=== PATIENT | female | born 2000 | race Two or more races ===

== ENCOUNTER 2025-03-06 05:53 | Emergency (ER) | payer MEDICAID, OTHER ==
[~2025-03-06] VITALS: Ht 152.4 cm; Wt 68.4 kg
[2025-03-06 06:32] VITALS: BP 118/71; PULSE 73; TEMP 98.5
--- NOTE | 2025-03-06 06:45 | ED.PDOC ---
GI ASSESSMENT HPI Comments 24 y/o F, presents to the ED for CC of abdominal pain. Patient states, she has been experiencing epigastric abdominal pain that radiates to her back sudden onset, 0400 this morning (03/06/25). Patient relays, that she is currently [id number] ; believes symptoms to be non-related. Patient denies nausea, vomiting, diarrhea, abdominal cramping, or vaginal bleeding. No other associated symptoms, modifiers, recent injuries or sick contacts present at this time. Chief Complaint: Abdominal Pain Time Seen by MD: 06:40 Reviewed Notes: Nurses Notes, Medications, Allergies Home Meds Active Scripts Pantoprazole Sodium Sesquihydr (Protonix) 40 Mg Tab, 40 MG PO DAILY, #30 TAB Prov:JERRY NEWELL MD 03/06/25 Information Source: Patient Mode of Arrival: Ambulatory Timing: Hours Duration: Since onset Prehospital treatment: None Vomitus: None Stool: Normal Severity: Moderate Recent: None Recent Hx of: None Pain Location: Epigastric Modifying Factors: Nothing Associated sign and symptoms: Abdominal Pain Past Medical History PAST MEDICAL HISTORY: Denies Surgical History: Denies all surgeries ORTHOPEDIC CODER History: Denies all ORTHOPEDIC CODER Hx Family History Family History: Unknown Social History Smoker: Non-Smoker Alcohol: Denies ETOH Use Drugs: Denies Drug Use Lives In: Home Constitutional: denies: chills, diaphoresis, fatigue, fever, malaise, sweats, weakness, others EENTM: denies: blurred vision, double vision, ear bleeding, ear discharge, ear drainage, ear pain, ear ringing, eye pain, eye redness, hearing loss, mouth pain, mouth swelling, nasal discharge, nose bleeding, nose congestion, nose pain, photophobia, tearing, throat pain, throat swelling, voice changes, others Respiratory: denies: cough, hemoptysis, orthopnea, SOB at rest, shortness of breath, SOB with excertion, stridor, wheezing, others Cardiovascular: denies: chest pain, dizzy spells, diaphoresis, Dyspnea on exertion, edema, irregular heart beat, left arm pain, lightheadedness, palpitations, PND, syncope, others Gastrointestinal: reports: abdominal pain; denies: abdomen distended, blood streaked bowels, constipated, diarrhea, dysphagia, difficulty swallowing, hematemesis, melena, nausea, poor appetite, poor fluid intake, rectal bleeding, rectal pain, vomiting, others Genitourinary: denies: abnormal vagina bleeding, burning, dyspareunia, dysuria, flank pain, frequency, hematuria, incontinence, pain, , vagina discharge, urgency, others Neurological: denies: dizziness, fainting, headache, left sided numbness, left sided weakness, numbness, paresthesia, pre-existing deficit, right sided numbness, right sided weakness, seizure, speech problems, tingling, tremors, weakness, others Musculoskeletal: denies: back pain, gout, joint pain, joint swelling, muscle pain, muscle stiffness, neck pain, others Integumetry: denies: bruises, change in color, change in hair/nails, dryness, laceration, lesions, lumps, rash, wounds, others Allergic/Immunocompromised: denies: Difficulty Healing, Frequent Infections, Hives, Itching, others Hematologic/Lymphatic: denies: anemia, blood clots, easy bleeding, easy bruising, swollen glands, others Endocrine: denies: excessive hunger, excessive sweating, excessive thirst, excessive urination, flushing, intolerance to cold, intolerance to heat, unexplained weight gain, unexplained weight loss, others Psychiatric: denies: anxiety, bipolar disorder, depression, hopeless, panic disorder, schizophrenia, sleepless, suicidal, others All Other Systems: Reviewed and Negative Physical Exam General Appearance: No Apparent Distress HEENT: Normal ENT Inspection, Pharynx Normal, TMs Normal Neck: Full Range of Motion, Non-Tender, Normal, Normal Inspection Respiratory: Chest Non-Tender, Lungs Clear, No Accessory Muscle Use, No Respiratory Distress, Normal Breath Sounds Cardiovascular: No Edema, No JVD, No Murmur, No Gallop, Normal Peripheral Pulses, Regular Rate/Rhythm Breast Exam: Deferred Gastrointestinal: Epigastric, No Organomegaly, No Pulsatile Mass, Normal Bowel Sounds, Soft, Tenderness Genitalia: Deferred Pelvic: Deferred Rectal: Deferred Extremities: No calf tenderness, Normal capillary refill, Normal inspection, Normal range of motion, Non-tender, No pedal edema Musculoskeletal : Apperance: Normal Neurologic: Alert, pharmacy analyst II-XII nml as Tested, No Motor Deficits, Normal Affect, Normal Mood, No Sensory Deficits Cerebellar Function: Normal Reflexes: Normal Skin: Dry, Normal Color, Warm Lymphatic: No Adenopathy Was a procedure done? Was a procedure done?: No GI differential Dx Differential Diagnosis: Cholecystitis, UTI, Urolithiasis, X-Ray, Labs, Meds, VS Vital Signs Date Time Temp Pulse Resp B/P (MAP) Pulse Ox O2 Delivery O2 Flow Rate FiO2 03/06/25 08:50 18 98 Room Air* 0 21 03/06/25 06:32 98.5 73 15 118/71 (87) 99 98.5 03/06/25 05:54 97.3 80 18 115/66 99 97.3 Lab Test 03/06/25 07:14 03/06/25 07:02 Range/Units Urine Color Colorless Yellow Urine Clarity Clear Clear Urine pH 6.5 5.0-9.0 Urine Specific [place] 1.007 1.001-1.035 Urine Protein Negative Negative Urine Ketones Negative Negative Urine Blood Negative Negative /uL Urine Nitrite Negative Negative Urine Bilirubin Negative Negative Urine Urobilinogen Normal Negative mg/dL Urine Leukocyte Esterase Negative Negative /uL Urine RBC <1 0 - 4 /hpf Urine Microscopic WBC 2 0-5 /HPF Urine Squamous Epithelial Cells Few <5 /hpf Urine Bacteria Few H None Seen /hpf Urine Glucose Normal Normal mg/dL Beta HCG, Quantitative 64348.6 H 1.5-4.2 mIU/mL The OB ultrasound shows a 17 week intrauterine with normal heart tones. The ultrasound of the gallbladder shows: IMPRESSION: 1. Cholelithiasis. No sonographic evidence of acute cholecystitis. Correlate with clinical findings. 2. Pancreas is obscured by bowel gas. The patient is given a prescription of Protonix The patient is told to follow up with the primary care doctor and OBGYN The urine test is negative for infection The patient is being discharged at this time At this time, the patient is to take Tylenol also for the pain Images Reviewed?: Images reviewed and evaluated by me Time of 1ST Reevaluation: 07:10 Reevaluation 1ST: Unchanged Patient Education/Counseling: Diagnosis, Treatment, Prognosis, Need For Follow Up Family Education/Counseling: Diagnosis, Treatment, Prognosis, Need For Follow Up SEPSIS Sepsis Screen Date sepsis recognized/suspect: Mar 06, 2025 Time Sepsis recognized/suspect: 0558 Recent Procedure: No On Antibiotic Therapy: No Respiratory Rate >20: No Heart Rate >90: No Temp<36 C (96.8 F) or >38.3 C: No SBP <90 or MAP <65 mmHG: No New Acute Mental Status Change: No Is the patient on CPAP, BIPAP,: No Physician Orders Gallbladder (03/06/25 06:43) Ob Ultrasound Comp Gtr 14 Wks (03/06/25 06:43) Vital Signs Date Time Temp Pulse Resp B/P (MAP) Pulse Ox O2 Delivery O2 Flow Rate FiO2 03/06/25 08:50 18 98 Room Air* 0 21 03/06/25 06:32 98.5 73 15 118/71 (87) 99 98.5 03/06/25 05:54 97.3 80 18 115/66 99 97.3 Departure 1 Departure Time of Disposition: 09:38 Impression: Primary Impression: Intrauterine Additional Impression: Cholelithiasis Qualified Codes: K80.20 - Calculus of gallbladder without cholecystitis without obstruction Disposition: HOME / SELF CARE / HOMELESS Condition: Fair e-Prescriptions Pantoprazole Sodium Sesquihydr (Protonix) 40 Mg Tab 40 MG PO DAILY, #30 TAB Prov: JERRY NEWELL MD 03/06/25 Discharged With: Self Critical Care Note Critical Care Time?: No Stability Stability form required: No Heart Score Heart Score: Heart Score Response (Comments) Value History N/A 0 EKG N/A 0 Age N/A 0 Risk Factors N/A 0 Troponin N/A 0 Total 0 I personally scribed for JERRY NEWELL MD ([email or web address]) on 03/06/25 at 06:45. Electronically submitted by Jia Francisco ([email or web address]). JERRY NEWELL MD Mar 06, 2025 06:45
[2025-03-06 07:25] LABS: Urine Protein, UAD Negative (Negative)
[2025-03-06 08:50] VITALS: RESP 18; O2SAT 98
--- NOTE | 2025-03-06 09:33 | DVH ---
CLINICAL INFORMATION: Pain. TECHNIQUE: Grayscale sonographic imaging of the right upper quadrant of the abdomen was performed, a ssisted by color Doppler techniques. COMPARISON: None FINDINGS: The gallbladder wall measures 2.1 mm in thickness, within normal limits. There is gallbl adder sludge and small gallstones within the gallbladder. Slightly larger gallstone measuring up to 1 .4 cm is seen near the fundus. Negative reported sonographic Collins's sign. The common bile duct benito ures 3 mm in diameter, within normal limits. The liver is normal in size and echotexture. No focal lesions. The pancreas is obscured by bowel gas. The right kidney measures 10.2 cm. There is no hydronephrosis. Right renal cortical echogenicity a nd cortical thickness are within normal limits. IMPRESSION: 1. Cholelithiasis. No sonographic evidence of acute cholecystitis. Correlate with clinical findings. 2. Pancreas is obscured by bowel gas.
--- NOTE | 2025-03-06 09:35 | DVH ---
LIMITED OB ULTRASOUND > 14 WKS: HISTORY: pain TECHNIQUE: Multiple real-time grayscale images of the gravid uterus with duplex Doppler color flow an d M-mode spectral analysis. COMPARISON: None FINDINGS: IUP single live fetus at 17 weeks 2 days based on composite averages of the BPD, head circumference, abdominal circumference and femur length. Estimated weight 189 grams. heart rate 152 beats per minute. Amniotic fluid is grossly adequate with MVP 5.3 cm Cervix is closed and measures 3.5 cm in length. Transverse presentation with head to the maternal right side. Grade 1 placenta without previa or abruption, in anterior position. IMPRESSION: 1. IUP single live fetus at 17 weeks 2 days AUA corresponding to an RICHELLE of 08/12/2025. 2. Additional findings as described above.
[2025-03-06] MEDS ORDERED: PANT40TA2 PO (09:37)
== END 2025-03-06 09:54 | disposition home or self-care (01) ==
LOC: ER 05:53
DX: O26.612 Liver and biliary tract disorders in pregnancy, second trimester (principal); K80.20 Calculus of gallbladder without cholecystitis without obstruction; O20.0 Threatened abortion; Z3A.17 17 weeks gestation of pregnancy; Z79.899 Other long term (current) drug therapy
CPT/HCPCS: 36415; 76705; 76805; 81001; 84702